=== PATIENT | female | born 1960 | race Caucasian/White ===

== ENCOUNTER → 2018-05-24 | Outpatient (CLI) | payer MEDICARE | LOC: M WUC 10:42 | DX: M25.531 Pain in right wrist (principal) | CPT/HCPCS: 73110 ==

== ENCOUNTER 2018-05-27 10:19 | Emergency (ER) | payer MEDICARE, OTHER | END 2018-05-27 11:47 | disposition left against medical advice (07) | LOC: M ED 10:19 | DX: S52.501D Unspecified fracture of the lower end of right radius, subsequent encounter for closed fracture with routine healing (principal); W19.XXXA Unspecified fall, initial encounter; Y92.833 Campsite as the place of occurrence of the external cause; Z91.048 Other nonmedicinal substance allergy status; Z79.899 Other long term (current) drug therapy | CPT/HCPCS: 73110 ==

== ENCOUNTER 2022-04-30 20:25 | Emergency (ER) | payer MEDICARE, OTHER ==
[~2022-04-30 20:25] MED LIST: DULO30CA9 PO; GABA-283 PO; LIPI10TA PO; LISI20TA33 PO
[2022-04-30 20:37] VITALS: BP 191/87
[2022-04-30] MEDS ORDERED: NS 1,000 ML IV ONE (20:50)
[2022-04-30 21:30] LABS: BASO % 0.2 % (0.0-1.0); EOS # 0.6 10^3/uL (0.0-0.5); EOS % 5.1 % (0.0-3.0); HEMATOCRIT 39.5 % (36.0-47.0); HEMOGLOBIN 13.3 g/dl (12.0-15.5); LYMPH # 1.4 10^3/uL (1.5-5.0); LYMPH % 11.3 % (24.0-44.0); MEAN CORPUSCULAR HEMOGLOBIN 31.7 pg (27.0-33.0); MEAN CORPUSCULAR HGB CONC 33.7 g/dl (32.0-36.5); MEAN CORPUSCULAR VOLUME 94.3 fl (80.0-96.0); MONO # 0.8 10^3/uL (0.0-0.8); MONO % 6.8 % (2.0-8.0); NEUTROPHILS # 9.1 10^3/uL (1.5-8.5); NEUTROPHILS % 76.3 % (36.0-66.0); PLATELET COUNT, AUTOMATED 193 10^3/uL (150-450); RED BLOOD COUNT 4.19 10^6/uL (4.00-5.40); WHITE BLOOD COUNT 11.9 10^3/uL (4.0-10.0)
[2022-04-30 21:55] LABS: CK-MB VALUE MASS < 1.0 NG/ML (<3.6); CPK CREATINE PHOSPHOKINASE 120 U/L (26-192); MB/CK RELATIVE INDEX 0.83 (< OR =4)
[2022-04-30 21:58] LABS: ALBUMIN 3.5 GM/DL (3.2-5.2); ALT/SGPT 27 U/L (12-78); BILIRUBIN,DIRECT 0.1 MG/DL (0.0-0.2); BILIRUBIN,TOTAL 0.3 MG/DL (0.2-1.0); BLOOD UREA NITROGEN 12 MG/DL (7-18); CALCIUM LEVEL 7.9 MG/DL (8.8-10.2); CARBON DIOXIDE LEVEL 31 MEQ/L (21-32); CHLORIDE LEVEL 110 MEQ/L (98-107); CREATININE FOR GFR 0.83 MG/DL (0.55-1.30); GLOMERULAR FILTRATION RATE > 60.0 (>45); GLUCOSE, FASTING 101 MG/DL (70-100); LIPASE 989 U/L (73-393); POTASSIUM SERUM 3.6 MEQ/L (3.5-5.1); SODIUM LEVEL 144 MEQ/L (136-145); TOTAL PROTEIN 6.7 GM/DL (6.4-8.2)
[2022-04-30] MEDS ORDERED: ISOVUE-370 76% 100ML VIAL As Ordered ONE (22:04)
[2022-05-01] MEDS ORDERED: LOPE1CAP5 PO (00:04)
[2022-05-01] MEDS ORDERED: ONDA4TAB6 PO (00:04)
[2022-05-01] MEDS ORDERED: CVS1CAP2 PO (00:04)
== END 2022-05-01 00:19 | disposition home or self-care (01) ==
LOC: EDBD 20:25 → M ED 20:25
DX: K52.9 Noninfective gastroenteritis and colitis, unspecified (principal); I10 Essential (primary) hypertension; E78.5 Hyperlipidemia, unspecified; F33.9 Major depressive disorder, recurrent, unspecified; M54.50 Low back pain, unspecified; J30.1 Allergic rhinitis due to pollen
CPT/HCPCS: 74177; 80048; 80076; 82550; 82553; 83690; 84484; 85025; 87507; 93005; 93041; 96360; 96361; 99284; Q9967